=== PATIENT | female | born 1955 | race Caucasian/White ===

== ENCOUNTER 2019-10-08 07:14 | Outpatient (CLI) | payer MEDICARE, OTHER, SELFPAY ==
--- NOTE | ~2019-10-08 | MM_ITS ---
EXAMINATION: MM screening [facility] BI w raymundo HISTORY: Screening mammogram TECHNIQUE: Craniocaudal and mediolateral oblique 3-D tomosynthesis images were obtained and synthetic 2-D images were generated. CAD analysis was submitted and interpreted. COMPARISON: 08/30/2018, 08/09/2017, 07/27/2016 bilateral digital screening mammogram examinations BREAST PARENCHYMAL COMPOSITION: The breasts are heterogeneously dense, which may obscure small masses . FINDINGS: There is no evidence of suspicious mass, calcification, or architectural distortion to sugg est malignancy in either breast. There has been no suspicious interval change. IMPRESSION: 1. No mammographic evidence of malignancy. 2. Recommend routine screening mammography in one year. BI-RADS Category 1: Negative Reviewed, dictated and finalized at location A. OR SYSTEMS PROGRAMMER
== END 2019-10-08 07:15 | disposition home or self-care (01) ==
LOC: ANHIMG 07:24
PROVIDERS: PCP Internal Medicine; Visit Provider Internal Medicine
DX: Z12.31 Encounter for screening mammogram for malignant neoplasm of breast (principal)
CPT/HCPCS: 77063; 77067

== ENCOUNTER 2019-10-08 07:47 | Outpatient (CLI) | payer MEDICARE, OTHER, SELFPAY ==
[2019-10-08 13:30] LABS: Basophils Absolute Auto 0.1 K/mm3 (0.0-0.1); Basophils Percent Auto 0.8 % (0.2-1.2); Eosinophils Absolute Auto 0.2 K/mm3 (0-0.3); Eosinophils Percent Auto 1.9 % (0-4.4); Hemoglobin 14.5 g/dL (12.0-15.0); Immature Granulocyte Absolute 0.04 K/mm3 (0.00-0.031); Immature Granulocyte Percent A 0.5 % (0-0.5); Lymphocytes Absolute Auto 1.63 K/mm3 (0.9-3.2); Lymphocytes Percent Auto 19.5 % (18.3-44.2); Mean Corpuscular HGB Conc 32.2 g/dl (32-36); Mean Corpuscular Hemoglobin 30.5 pg (26-34); Mean Corpuscular Volume 94.7 fl (80-100); Mean Platelet Volume 10.8 fl (7.4-10.4); Monocytes Absolute Auto 0.7 K/mm3 (0.1-0.6); Monocytes Percent Auto 7.9 % (2.6-8.5); Neutrophils Absolute Auto 5.8 K/mm3 (1.3-6.7); Neutrophils Percent Auto 69.4 % (45.5-73.1); Platelet Count Result 284 k/mm3 (150-375); Red Blood Count 4.75 M/mm3 (4.2-5.4); Red Cell Distribution Width 13.7 % (11.5-14.5); White Blood Count 8.4 K/mm3 (4.5-10.0)
[2019-10-08 13:37] LABS: Alanine Aminotransferase 20 U/L (4-35); Albumin Level 4.5 g/dL (3.5-5.1); Alkaline Phosphatase 64 U/L (38-126); Aspartate Amino Transferase 26 U/L (14-36); Bilirubin,Total 0.6 mg/dL (0.2-1.3); Blood Urea Nitrogen 19 mg/dL (7-17); Calcium 9.3 mg/dL (8.4-10.2); Carbon Dioxide 23 mmol/L (22-30); Chloride 108 mmol/L (98-107); Cholesterol 212 mg/dL (0-200); Estimated Glomerular Filt Rate > 60; Glucose 93 mg/dL (65-105); HDL Direct 88 mg/dL; Potassium 4.3 mmol/L (3.4-5.0); Sodium 138 mmol/L (137-145); Triglycerides 126 mg/dL (<150)
[2019-10-08 13:48] LABS: LDL Cholesterol Direct 117 mg/dL
[2019-10-08 14:07] LABS: Thyroid Stimulating Hormone < 0.015 uIU/mL (0.465-4.680)
== END 2019-10-08 07:48 | disposition home or self-care (01) ==
LOC: ANHWCLAB 07:52
PROVIDERS: PCP Internal Medicine; Visit Provider Internal Medicine
DX: E78.49 Other hyperlipidemia (principal); R53.83 Other fatigue
CPT/HCPCS: 36415; 77063; 77067; 80053; 80061; 84443; 85025

== ENCOUNTER 2020-05-23 06:54 | Outpatient (NON) | payer MEDICARE, OTHER, SELFPAY ==
[2020-05-23 18:25] LABS: SARS-CoV-2 RNA PCR Negative
== END 2020-05-23 06:55 ==
PROVIDERS: PCP Internal Medicine; Visit Provider Internal Medicine
DX: R68.89 Other general symptoms and signs (principal); Z20.828 Contact with and (suspected) exposure to other viral communicable diseases
CPT/HCPCS: 87635; C9803; U0003

== ENCOUNTER 2020-07-16 14:02 | Emergency (ER) | payer MEDICARE, OTHER, SELFPAY ==
[2020-07-16 14:15] VITALS: BP 142/77; PULSE 82; RESP 16; TEMP 36.8; O2SAT 100
--- NOTE | 2020-07-16 14:48 | ED.FEMALEGU ---
HPI - Female Genitourinary General Chief complaint: Urogenital-Female Stated complaint: Possible UTI Source: patient and RN notes reviewed Mode of arrival: ambulatory History of Present Illness HPI Narrative: This is a 65-year-old white female that presented to the urgent care today with complaints of a persistent urge to urinate in suprapubic pressure. According to patient she has a history of urinary tract infections. She noted that she has historically developed UTIs after having sexual intercourse. She also noted that her doctor had given her Macrobid to take post sexual intercourse to prevent urinary tract infections. Patient did note that she does not have hematuria, she denies any STDs, no vaginal tenderness, fever , dysuria ,costovertebral angle tenderness. Patient urinalysis did return negative she will be treated for urinary tract infection off of symptoms and her urine will be sent in for culture Related Data Home Medications Medication Instructions Recorded Confirmed No Home Medications 07/16/20 07/16/20 Allergies Allergy/AdvReac Type Severity Reaction Status Date / Time No Known Allergies Allergy Unknown Verified 07/16/20 14:13 Review of Systems Review of Systems: All systems reviewed & are unremarkable except as noted in HPI and below (10 point system review) [facility] Family History Family History Other Family history of arthritis Family history of cardiovascular disease Family history of kidney stones Hypertension Social History Social History Smoking status: Current some day smoker Tobacco type: cigarettes Second hand tobacco smoke exposure: No Alcohol intake: current Gender identity (if verbalized by the patient): Female Exam Narrative: Exam Narrative: GENERAL: This is a well-nourished, well-developed patient, in no apparent distress. HEAD: normocephalic, atraumatic. EYES: PERRL. Sclera clear/white. Vision is grossly intact. EARS: External ears normal, auditory canals clear and without drainage, TMs normal without perforation. Hearing grossly intact. NOSE: External nose normal with no obvious nasal discharge, nares without redness, no rhinorrhea. THROAT: Mucous membranes moist, posterior pharynx clear. NECK: Neck supple, non-tender without lymphadenopathy, masses or thyromegaly. CARDIOVASCULAR: Regular rate and rhythm without murmurs, gallops, or rubs. RESPIRATORY: Clear to auscultation. Breath sounds equal bilaterally. No wheezes, rales, or rhonchi. GASTROINTESTINAL: Abdomen soft, non-tender, nondistended. Bowel sounds are active. No hepato-splenomegaly, or palpable masses. No guarding. SKIN: warm, intact with no suspicious lesions or rash, good texture and turgor. NEURO: awake, alert, and oriented to person, place and time. There were no obvious focal neurologic abnormalities. Steady gait EXTREMITIES: Normal range of motion. No edema. No calf tenderness. Negative Homans sign bilaterally. BACK: Nontender without deformity or crepitance. No flank tenderness. Course Course Emergency Course: Patient will discharge home with Macrobids x10 days Vital Signs Vital signs: Vital Signs Temperature 98.2 F 07/16/20 14:15 Pulse Rate 82 07/16/20 14:15 Respiratory Rate 16 07/16/20 14:15 Blood Pressure 142/77 H 07/16/20 14:15 Pulse Oximetry 100 07/16/20 14:15 Temperature 98.2 F 07/16/20 14:15 Pulse Rate 82 07/16/20 14:15 Respiratory Rate 16 07/16/20 14:15 Blood Pressure 142/77 H 07/16/20 14:15 Pulse Oximetry 100 07/16/20 14:15 MDM - Female Genitourinary Differential Diagnosis Differential diagnosis: Likely urinary tract infection, bacterial vaginosis and vaginitis Lab Data Attestation: I reviewed the patient's lab results. Labs: Urine Glucose Negative Reference Range: Nega
== END 2020-07-16 14:50 | disposition home or self-care (01) ==
PROVIDERS: Emergency Provider Nurse Practitioner; PCP Internal Medicine
DX: N39.0 Urinary tract infection, site not specified (principal); F17.210 Nicotine dependence, cigarettes, uncomplicated
CPT/HCPCS: 81003; 87086; 99213; G0463

== ENCOUNTER 2020-08-02 12:42 | Emergency (ER) | payer MEDICARE, OTHER, SELFPAY ==
[2020-08-02 12:51] VITALS: BP 127/76; PULSE 70; RESP 16; TEMP 36.4; O2SAT 100
[2020-08-02 12:52] VITALS: BP 127/76; PULSE 70; RESP 16; TEMP 36.4; O2SAT 100
--- NOTE | 2020-08-02 13:31 | ED.GENADULT ---
HPI - General Adult General Chief complaint: Urogenital-Female Stated complaint: lower back pain,dizzy,headache Time Seen by Provider: 08/02/20 13:25 Source: patient, RN notes reviewed and old records reviewed Mode of arrival: ambulatory Limitations: no limitations History of Present Illness HPI narrative: Patient presents today complaining of possible UTI. She was seen here at [facility] on 07/16/20 complaining of UTI symptoms. At that time, her UA was negative, but was treated with Macrobid. Her subsequent urine culture was negative. Patient states her symptoms never really resolved and she also continued to take Azo since that time. She is complaining of bilateral hip pain and low back pain, which she believes could be attributed to UTI. She is not experiencing dysuria, hematuria, frequency, urgency. MD complaint: UTI Related Data Home Medications Medication Instructions Recorded Confirmed No Home Medications 07/16/20 08/02/20 Allergies Allergy/AdvReac Type Severity Reaction Status Date / Time No Known Allergies Allergy Unknown Verified 08/02/20 12:52 Review of Systems Review of Systems: Narrative: CONSTITUTIONAL: Denies body aches, fever, chills, or sweats. EYES: Denies visual changes, redness, or discharge. ENT: Denies rhinorrhea, congestion, sore throat, or otalgia. CARDIOVASCULAR: Denies chest pain, palpitations, or edema. RESPIRATORY: Denies cough or dyspnea. GASTROINTESTINAL: Denies abdominal pain, nausea, vomiting, or diarrhea. GENITOURINARY: Denies dysuria or hematuria. SKIN: Denies rash, itching, or wounds. MUSCULOSKELETAL: Denies myalgia. + Bilateral hip pain, low back pain NEUROLOGIC: Denies headache, numbness, tingling, or weakness. PSYCH: Denies depression or anxiety. [facility] Family History Family History Other Family history of arthritis Family history of cardiovascular disease Family history of kidney stones Hypertension Social History Social History Smoking status: Current some day smoker Tobacco type: cigarettes Second hand tobacco smoke exposure: No Alcohol intake: current Gender identity (if verbalized by the patient): Female Comments At time of signature, I have reviewed and agree with nursing past medical, surgical, social and family history unless otherwise noted. Please see nursing chart for further information. There is no relevant family history pertinent to the presenting complaint Exam Narrative: Exam Narrative: GENERAL: Well-appearing, well-nourished, and in no acute distress. HEAD: Normocephalic, atraumatic. EYES: EOMI. No redness or drainage. Conjunctivae normal. ENT: Mucous membranes pink and moist. NECK: Normal AROM. Supple. No lymphadenopathy. CHEST: No respiratory distress. Clear to auscultation. HEART: Regular rate and rhythm. No murmur appreciated. Normal peripheral pulses. ABDOMEN: Soft, nontender, nondistended, normal active bowel sounds. -CVAT MUSCULOSKELETAL: No bony tenderness. EXTREMITIES: Normal range of motion. No edema. SKIN: Warm, dry, no rash. Capillary refill normal. Normal skin turgor. NEURO: No focal deficits. Alert and oriented x3. Gait steady. PSYCH: Normal affect. No signs of depression or anxiety. Course Vital Signs Vital signs: Vital Signs Temperature 97.6 F 08/02/20 12:51 Pulse Rate 70 08/02/20 12:51 Respiratory Rate 16 08/02/20 12:51 Blood Pressure 127/76 08/02/20 12:51 Pulse Oximetry 100 08/02/20 12:51 Temperature 97.6 F 08/02/20 12:52 Pulse Rate 70 08/02/20 12:52 Respiratory Rate 16 08/02/20 12:52 Blood Pressure 127/76 08/02/20 12:52 Pulse Oximetry 100 08/02/20 12:52 Reviewed. Pt has been instructed to follow up with her PCP regarding her elevated blood pressure today. Medical Decision Making Differential Diagnosis Differential Diagnosis: UTI, low back pain
== END 2020-08-02 13:36 | disposition home or self-care (01) ==
PROVIDERS: Emergency Provider Nurse Practitioner; PCP Internal Medicine
DX: M54.5 Low back pain (principal); M25.552 Pain in left hip; M25.551 Pain in right hip; F17.210 Nicotine dependence, cigarettes, uncomplicated
CPT/HCPCS: 81003; 99212; G0463

== ENCOUNTER 2020-10-03 09:09 | Outpatient (CLI) | payer MEDICARE, OTHER, SELFPAY ==
[2020-10-03 09:35] LABS: Basophils Absolute Auto 0.1 K/mm3 (0.0-0.1); Basophils Percent Auto 0.7 % (0.2-1.2); Eosinophils Absolute Auto 0.1 K/mm3 (0-0.3); Hemoglobin 14.7 g/dL (12.0-15.0); Immature Granulocyte Absolute 0.02 K/mm3 (0.00-0.031); Immature Granulocyte Percent A 0.3 % (0-0.5); Lymphocytes Absolute Auto 1.38 K/mm3 (0.9-3.2); Lymphocytes Percent Auto 19.4 % (18.3-44.2); Mean Corpuscular HGB Conc 32.7 g/dl (32-36); Mean Corpuscular Hemoglobin 30.6 pg (26-34); Mean Corpuscular Volume 93.8 fl (80-100); Mean Platelet Volume 9.6 fl (7.4-10.4); Monocytes Absolute Auto 0.6 K/mm3 (0.1-0.6); Monocytes Percent Auto 8.4 % (2.6-8.5); Neutrophils Percent Auto 70.2 % (45.5-73.1); Platelet Count Result 282 k/mm3 (150-375); Red Cell Distribution Width 12.9 % (11.5-14.5); White Blood Count 7.1 K/mm3 (4.5-10.0)
[2020-10-03 10:10] LABS: Alanine Aminotransferase 15 U/L (4-35); Albumin Level 4.4 g/dL (3.5-5.1); Alkaline Phosphatase 49 U/L (38-126); Anion Gap 6 mmol/L (8-16); Aspartate Amino Transferase 24 U/L (14-36); Bilirubin,Total 0.6 mg/dL (0.2-1.3); Blood Urea Nitrogen 16 mg/dL (7-17); Calcium 9.3 mg/dL (8.4-10.2); Carbon Dioxide 27 mmol/L (22-30); Chloride 107 mmol/L (98-107); Cholesterol 236 mg/dL (0-200); Estimated Glomerular Filt Rate > 60; Glucose 101 mg/dL (65-105); HDL Direct 93 mg/dL; Potassium 4.2 mmol/L (3.4-5.0); Sodium 140 mmol/L (137-145); Triglycerides 98 mg/dL (<150)
[2020-10-03 10:36] LABS: LDL Cholesterol Direct 117 mg/dL
[2020-10-03 10:40] LABS: Thyroid Stimulating Hormone 0.801 uIU/mL (0.465-4.680)
[2020-10-03 11:16] LABS: Free T4 Free Thyroxine 0.74 ng/mL (0.78-2.19)
== END 2020-10-03 09:10 | disposition home or self-care (01) ==
PROVIDERS: PCP Internal Medicine; Referring Provider Obstetrics & Gynecology Gynecology; Visit Provider Internal Medicine
DX: R53.83 Other fatigue (principal); E78.00 Pure hypercholesterolemia, unspecified; E03.9 Hypothyroidism, unspecified
CPT/HCPCS: 36415; 80053; 80061; 84439; 84443; 85025

== ENCOUNTER → 2020-10-28 03:01 | Outpatient (CLI) | payer MEDICARE, OTHER, SELFPAY ==
[2020-10-28 18:08] LABS: SARS-CoV-2 RNA PCR Negative
== END ==
PROVIDERS: PCP Internal Medicine; Visit Provider Internal Medicine Gastroenterology
DX: Z01.812 Encounter for preprocedural laboratory examination (principal); Z20.822 Contact with and (suspected) exposure to COVID-19
CPT/HCPCS: C9803; U0003; U0005

== ENCOUNTER 2020-10-31 01:20 | Day surgery (SDC) | payer MEDICARE, OTHER, SELFPAY ==
[2020-10-23 14:30] VITALS: BMI 22.1
[2020-10-31 10:19] VITALS: BP 128/77; PULSE 85; RESP 20; TEMP 36.4; O2SAT 100; BMI 22.6
--- NOTE | 2020-10-31 10:33 | WPDANESEPPF ---
Anes - Initial Pre Proc Eval Procedure: Operation Date: 10/31/20 11:30 Proposed Procedures p Screening Colonoscopy - Jaya Oneill MD Date/Time: 10/31/20 10:33 Surgeon: Jaya Oneill MD Pre Op Diagnosis: hx of colon polyps Patient Data Age: 65 Gender: F Height: 5 ft 4 in Weight: 59.7 kg Last Vital Signs Temp 97.6 F 10/31/20 10:19 Pulse 85 10/31/20 10:19 Resp 20 10/31/20 10:19 BP 128/77 10/31/20 10:19 Pulse Ox 100 10/31/20 10:19 Allergies Allergy/AdvReac Type Severity Reaction Status Date / Time No Known Allergies Allergy Unknown Verified 10/31/20 10:18 Home Medications Medication Instructions Recorded Confirmed Type cholecalciferol (vitamin D3) 125 125 mcg PO DAILY 10/01/20 10/23/20 History mcg (5,000 unit) capsule lisinopril 10 mg tablet 10 mg PO DAILY #90 tablet 10/01/20 10/23/20 Rx melatonin 3 mg tablet 1.5 mg PO DAILY tablet 10/01/20 10/23/20 History thyroid 120 mg tablet 105 mg PO DAILY tablet 10/01/20 10/23/20 History estradiol 1 mg PO DAILY 10/23/20 10/23/20 History progesterone micronized 100 mg PO DAILY 10/23/20 10/23/20 History testosterone 1 packet TRANSDERMAL DAILY 10/23/20 10/23/20 History Patient hx anesthesia problems: none Family hx anesthesia problems: none PMFSH Past Medical History Medical History (Updated 10/31/20 @ 10:33 by Desean Ramírez MD) Hypertension Hypothyroid Pure hypercholesterolemia Family History Family History Other Family history of arthritis Family history of cardiovascular disease Family history of kidney stones Hypertension Social History Social History Years smoked: 40 Smoking status: Former smoker Tobacco type: cigarettes Second hand tobacco smoke exposure: No Smoking end date: 08/08/20 Alcohol intake: current Drinks per week: 5 Living arrangements: alone Gender identity (if verbalized by the patient): Female Spiritual care concerns: No Anes - Eval Final PreProcedure Day of Procedure 10/31/20 10:33 Patient weight: normal Heart: regular rate and rhythm Lungs: clear to auscultation Airway: Mallampati scale class II Neurological: alert and oriented Last oral intake: >/= 8 hours ASA classification: II Emergent: no Anesthetic plan: proceed Anesthesia type and monitoring: general GIVS and standard monitoring Informed Consent: The patient's anesthetic plan and its attendant risks and benefits were discussed with the patient/family/POA. Questions were solicited and answers provided to the satisfaction of the patient/family/POA.
[2020-10-31] MEDS: LACTATED RINGERS 1,000 ML 150 ML IV CONT (10:34)
--- NOTE | 2020-10-31 10:46 | PM.HPGS ---
History of Present Illness History of Present Illness Consent: Risks, benefits, and alternatives have been discussed and questions answered. Patient agrees to proceed with procedure. Chief complaint: hx of colon polyps Narrative: Lucila Burns is a 65 year old female Here today for colon cancer screening. She had a polyp removed 7 years ago Review of Systems Review of Systems: All systems reviewed & are unremarkable except as noted in HPI and below PMFSH Past Medical History Medical History Hypertension Hypothyroid Pure hypercholesterolemia Family History Family History Other Family history of arthritis Family history of cardiovascular disease Family history of kidney stones Hypertension Social History Social History Years smoked: 40 Smoking status: Former smoker Tobacco type: cigarettes Second hand tobacco smoke exposure: No Smoking end date: 08/08/20 Alcohol intake: current Drinks per week: 5 Living arrangements: alone Gender identity (if verbalized by the patient): Female Spiritual care concerns: No Meds Home Medications and Allergies Home Medications Medication Instructions Recorded Confirmed Type cholecalciferol (vitamin D3) 125 125 mcg PO DAILY 10/01/20 10/23/20 History mcg (5,000 unit) capsule lisinopril 10 mg tablet 10 mg PO DAILY #90 tablet 10/01/20 10/23/20 Rx melatonin 3 mg tablet 1.5 mg PO DAILY tablet 10/01/20 10/23/20 History thyroid 120 mg tablet 105 mg PO DAILY tablet 10/01/20 10/23/20 History estradiol 1 mg PO DAILY 10/23/20 10/23/20 History progesterone micronized 100 mg PO DAILY 10/23/20 10/23/20 History testosterone 1 packet TRANSDERMAL DAILY 10/23/20 10/23/20 History Allergies Allergy/AdvReac Type Severity Reaction Status Date / Time No Known Allergies Allergy Unknown Verified 10/31/20 10:18 Vital Signs Vital Signs - 24 hr 10/31/20 10:19 Temperature 36.4 C Pulse Rate 85 Respiratory Rate 20 Blood Pressure 128/77 Pulse Oximetry 100 Exam Resp: Auscultation: clear to auscultation bilaterally Cardio: Rate: regular rate Rhythm: regular rhythm GI: GI Palp: Yes Soft to palpation and No Tenderness to palpation present (GI) Assessment and Plan Assessment and plan (1) Colon cancer screening: Code(s): Z12.11 - Encounter for screening for malignant neoplasm of colon Status: Acute Assessment and Plan: Colonoscopy with possible biopsy or polypectomy or cautery or injection of substances.
[2020-10-31 11:38] VITALS: BP 108/61; PULSE 63; RESP 15; O2SAT 100
[2020-10-31 11:48] VITALS: BP 119/71; PULSE 65; RESP 18; O2SAT 100
[2020-10-31 11:58] VITALS: BP 117/64; PULSE 62; RESP 14; O2SAT 96
== END 2020-10-31 12:20 | disposition home or self-care (01) ==
PROVIDERS: PCP Internal Medicine; Visit Provider Internal Medicine Gastroenterology
PROC: 0DJD8ZZ Inspection of Lower Intestinal Tract, Via Natural or Artificial Opening Endoscopic (ICD-10-PCS; CPT 45378; principal; 2020-10-31 11:30)
DX: Z12.11 Encounter for screening for malignant neoplasm of colon (principal); K63.5 Polyp of colon; K57.30 Diverticulosis of large intestine without perforation or abscess without bleeding; I10 Essential (primary) hypertension; E03.9 Hypothyroidism, unspecified; E78.00 Pure hypercholesterolemia, unspecified; Z87.891 Personal history of nicotine dependence
CPT/HCPCS: 45385; 88305; J2001; J2704; J7120

== ENCOUNTER 2020-11-06 10:16 | Outpatient (CLI) | payer MEDICARE, OTHER, SELFPAY ==
--- NOTE | ~2020-11-06 | DEXA_ITS ---
Bone Density Report Name: Lucila Burns Age: 65 Sex: Female Ethnicity: White Date of : 1955 Indication: osteopenia; height loss; Referring Provider: Anuj Causey Study: Bone densitometry was performed. Exam Date: November 06, 2020 Accession number: [id number] Bone Density: Region BMD T-score Z-score Classification AP Spine (L1-L4) 0.941 -1.0 1.0 Normal Femoral Neck (Left) 0.781 -0.6 1.0 Normal Total Hip (Left) 0.889 -0.4 0.9 Normal Total Hip Bilateral Avg 0.890 -0.4 0.9 Normal Femoral Neck (Right) 0.713 -1.2 0.4 Osteopenia Total Hip (Right) 0.891 -0.4 0.9 Normal World Health Organization criteria for BMD impression classify patients as: Normal (T-score at or above -1.0), Osteopenia (T-score between -1.0 and -2.5), or Osteoporosis (T-score at or below -2.5). 10-year Fracture Risk(1): Major Osteoporotic Fracture 8.4% Hip Fracture 0.8% Reported Risk Factors: [place] (), Neck BMD=0.713, BMI=23.0 (1) FRAX(R) Version 3.08. Fracture probability calculated for an untreated patient. Fracture probability may be lower if the patient has received treatment. Previous Exams: Region Exam Age BMD T-score BMD Change BMD Change Date g/cm2 vs Baseline vs Previous AP Spine(L1-L4) 11/06/2020 65 0.941 -1.0 -0.062(-6.2%)# 0.050(5.7%)# 09/27/2018 63 0.890 -1.4 -0.112(-11.2%) -0.030(-3.3%)* 07/27/2016 61 0.920 -1.2 -0.082(-8.2%)# 0.006(0.7%)# 01/03/2013 57 0.914 -1.2 -0.089(-8.8%)# -0.041(-4.2%)# 09/12/2009 54 0.955 -0.8 -0.048(-4.8%)* -0.048(-4.8%)* 12/29/2006 51 1.003 -0.4 Total Hip(Left) 11/06/2020 65 0.889 -0.4 0.012(1.4%)# 0.051(6.1%)# 09/27/2018 63 0.837 -0.9 -0.039(-4.5%)# -0.019(-2.2%) 07/27/2016 61 0.856 -0.7 -0.020(-2.3%)# -0.049(-5.4%)# 01/03/2013 57 0.905 -0.3 0.029(3.3%)# 0.014(1.6%)# 09/12/2009 54 0.891 -0.4 0.015(1.7%) 0.015(1.7%) 12/29/2006 51 0.876 -0.5 Total Hip(Right) 11/06/2020 65 0.891 -0.4 -0.014(-1.5%)# 0.028(3.2%)# 09/27/2018 63 0.863 -0.6 -0.042(-4.6%)# 0.002(0.3%) 07/27/2016 61 0.861 -0.7 -0.044(-4.9%)# -0.028(-3.1%)# 01/03/2013 57 0.889 -0.4 -0.016(-1.8%)# -0.059(-6.2%)# 09/12/2009 54 0.948 0.0 0.042(4.7%)* 0.042(4.7%)* 12/29/2006 51 0.905 -0.3 *Denotes significance at 95% confidence level, LSC for AP Spine = 0.022 g/cm2, LSC for Total Hip = 0.027 g/cm2 Clinical Information Provided by Patient: Has used the following medicatio
--- NOTE | ~2020-11-06 | MM_ITS ---
EXAMINATION: MM screening [facility] BI w raymundo HISTORY: Screening mammogram TECHNIQUE: Craniocaudal and mediolateral oblique 3-D tomosynthesis images were obtained and synthetic 2-D images were generated. CAD analysis was submitted and interpreted. COMPARISON: 10/08/2019, 08/30/2018, 08/09/2017 BREAST PARENCHYMAL COMPOSITION: The breasts are heterogeneously dense, which may obscure small masses . FINDINGS: There is no evidence of suspicious mass, calcification, or architectural distortion to sugg est malignancy in either breast. There has been no suspicious interval change. IMPRESSION: 1. No mammographic evidence of malignancy. 2. Recommend routine screening mammography in one year. BI-RADS Category 1: Negative Reviewed, dictated and finalized at location A.
== END 2020-11-06 10:17 | disposition home or self-care (01) ==
PROVIDERS: PCP Internal Medicine; Visit Provider Student in an Organized Health Care Education/Training Program
DX: Z12.31 Encounter for screening mammogram for malignant neoplasm of breast (principal); Z78.0 Asymptomatic menopausal state; M85.851 Other specified disorders of bone density and structure, right thigh
CPT/HCPCS: 77063; 77067; 77080

== ENCOUNTER → 2022-02-11 12:16 | Outpatient (CLI) | payer MEDICARE, OTHER, SELFPAY ==
--- NOTE | ~2022-02-11 | MR_ITS ---
EXAMINATION: MR elbow RT wo con DATE: 02/11/2022 12:52 INDICATION: Lateral epicondylitis at the right elbow TECHNIQUE: Magnetic resonance imaging (MRI) of the right elbow was performed without intravenous cont rast. Sequences included coronal, axial, and sagittal PD-weighted FS FSE and coronal, axial, and sagi ttal PD-weighted FSE. COMPARISON: None FINDINGS: Osseous/other: Normal alignment. Normal marrow signal with no marrow edema, fracture, osteochondral lesion or abnor mal marrow replacing process. Mild osteoarthritis with mild nonuniform joint space narrowing on the p roximal articular surface of the radial head. Tendons: Triceps and brachialis tendons are normal. Mild tendinopathy without discrete tear at the distal nai ps brachii tendon. Common flexor tendon wad is normal. Moderate tendinopathy and partial-thickness te ar at the lateral epicondylar origin of the common extensor tendon wad. The tear appears to involve a pproximately one half of the cross-sectional area of the tendon wad. Ligaments: The medial and lateral collateral ligament complexes are normal. Cubital tunnel: Cubital tunnel is unremarkable with normal signal and caliber of the ulnar nerve. Fluid: Physiologic amount of fluid the elbow joint. IMPRESSION: 1. Moderate tendinopathy and partial-thickness tear at the lateral epicondylar origin of the common e xtensor tendon wad. 2. Mild tendinopathy without discrete tear at the distal biceps brachii tendon. 3. 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 Reviewed, dictated and finalized at location A. IMPRESSION: 1. Moderate tendinopathy and partial-thickness tear at the lateral epicondylar origin of the common extensor tendon wad. 2. Mild tendinopathy without discrete tear at the distal biceps brachii tendon. 3. 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
== END ==
PROVIDERS: PCP Internal Medicine; Visit Provider Orthopaedic Surgery
DX: M77.11 Lateral epicondylitis, right elbow (principal)
CPT/HCPCS: 73221

== ENCOUNTER 2022-02-19 08:26 | Outpatient (CLI) | payer MEDICARE, OTHER, SELFPAY ==
--- NOTE | 2022-02-19 08:43 | ECG_ITS ---
Measurements Intervals [place] Rate: 65 P: 73 [place]: 141 QRS: -17 QRSD: 107 T: 57 QT: 401 QTc: 419 Interpretive Statements SINUS RHYTHM LEFT ATRIAL ENLARGEMENT INCOMPLETE RIGHT BUNDLE BRANCH BLOCK BORDERLINE ECG Electronically Signed On 02-19-2022 18:29:17 CDT by Calin Lozano D.O.
== END 2022-02-19 08:27 | disposition home or self-care (01) ==
LOC: ANHSURGERY 08:34
PROVIDERS: PCP Internal Medicine; Visit Provider Orthopaedic Surgery
DX: I10 Essential (primary) hypertension (principal); I45.4 Nonspecific intraventricular block
CPT/HCPCS: 93005

== ENCOUNTER 2022-02-23 00:19 | Day surgery (SDC) | payer MEDICARE, OTHER, SELFPAY ==
[2022-02-17 12:46] VITALS: BMI 22.3
--- NOTE | 2022-02-17 12:52 | PC.NURSE ---
Report to the Outpatient Waiting Room, entrance under the green pavilion located off [facility], at time 0615 on date 02-23-2022. OR Time: 0815. - You and your visitor will be asked a series of questions to screen for COVID 19 for your protection. - Only one visitor is allowed at this time. - The patient visitor is requested to leave or wait in car when not with patient. - A mask is required within the hospital. Patients may have clear liquids (water, carbonated beverages, clear teas, apple juice) until 3 hours prior to surgery with a maximum of 20 ounces. - No food from midnight until time of surgery Take the following medications with a SIP of water the morning of surgery: ____Thyroid Medications to discontinue per physician Date to take last dose Please no make-up, nail estonian, hairspray, perfume, deodorant, or body powder the day of surgery. No jewelry (including any body piercings) or valuables the day of surgery, leave them at home. Please take a shower or bath the night before, or the morning of, surgery with an antibacterial soap. Wear comfortable, loose fitting clothing. - Jewelry must be removed prior to entering the operating room. Rings and piercings that are not removed may be cut off. - The hospital will not accept responsibility for valuables. - Please leave all valuables, including medications, at home the day of surgery. If you are going home after surgery, a licensed locomotive driver must drive you home. - NO public transportation without another adult. - We recommend that an adult stay with you for 24 hours following discharge. - We also recommend that you do not drive, make important decision, drink alcoholic beverages, or take any drugs that were not prescribed by your health care provider for at least 24 hours after your discharge time. Follow any additional instructions given to you from your surgeon. If you or anyone in your household have experienced Covid symptoms in the past week, please notify your surgeon or the nurse liaison at the phone number below for possible testing. Telephone instructions given to __Patient and asked if any additional questions and then verbalized understanding. Patient advised to call surgeon office or pre surgery nurse liaison [phone] if any additional questions.
--- NOTE | 2022-02-22 14:49 | P.PNAN_ITS ---
Anes - Initial Pre Proc Eval Procedure: Operation Date: 02/23/22 08:30 Proposed Procedures p Right Lateral Epicondylar Debridement - Mario Bearden MD Date/Time: 02/22/22 14:49 Surgeon: Mario Bearden MD Pre Op Diagnosis: Right lateral epicondylitis Patient Data Age: 66 Gender: F Height: 1.63 m Weight: 59 kg Allergies Allergy/AdvReac Type Severity Reaction Status Date / Time No Known Allergies Allergy Unknown Verified 02/23/22 06:40 Home Medications Medication Instructions Recorded Confirmed Type cholecalciferol (vitamin D3) 125 125 mcg PO DAILY 10/01/20 02/23/22 History mcg (5,000 unit) capsule melatonin 3 mg tablet 1.5 mg PO DAILY 10/01/20 02/23/22 History thyroid 120 mg tablet 105 mg PO DAILY 10/01/20 02/23/22 History estradiol 1 mg tablet 1 mg PO DAILY 10/23/20 02/23/22 History progesterone micronized 100 mg 100 mg PO HS 10/23/20 02/23/22 History capsule testosterone 1 % (25 mg/2.5 gram) 1 packet transdermal DAILY 10/23/20 02/17/22 History transdermal gel packet lisinopril 10 mg tablet 10 mg PO DAILY #90 tabs 10/05/21 02/23/22 Rx progesterone micronized 200 mg 200 mg PO HS 02/17/22 02/23/22 History capsule Patient hx anesthesia problems: none Family hx anesthesia problems: none Results Review: All pre-operative results and documents have been reviewed as part of the pre- operative evaluation. [facility] Past Medical History Medical History (Updated 02/16/22 @ 09:45 by Mario Bearden MD) Hypertension Hypothyroid Pure hypercholesterolemia Right lateral epicondylitis Surgical History Surgical History History of hysterectomy Family History Family History Sibling Brain cancer Hypertension Heart disease Other Family history of arthritis Family history of cardiovascular disease Family history of kidney stones Social History Social History Years smoked: 20 Smoking status: Former smoker Tobacco type: cigarettes Second hand tobacco smoke exposure: No Smoking end date: 02/17/15 Alcohol intake: current Drinks per week: 3 Living arrangements: alone Gender identity (if verbalized by the patient): Female Spiritual care concerns: No Anes - Eval Final PreProcedure Day of Procedure 02/22/22 14:49 Patient weight: normal Heart: regular rate and rhythm Lungs: clear to auscultation Airway: Mallampati scale class II Neurological: alert and oriented Last oral intake: >/= 8 hours ASA classification: II Emergent: no Anesthetic plan: proceed Anesthesia type and monitoring: general LMA and standard monitoring Results Review: All pre-operative results and documents have been reviewed as part of the pre-op erative evaluation. Informed Consent: The patient's anesthetic plan and its attendant risks and benefits were discussed with the patient/family/POA. Questions were solicited and answers provided to the satisfaction of the patient/family/POA.
[2022-02-23] VITALS (7 sets, daily range): BP systolic 109–140; BP diastolic 56–90; PULSE 59–75; RESP 10–17; TEMP 36.4–36.6; O2SAT 98–100
[2022-02-23] MEDS: ACETAMINOPHEN 500 MG TABLET 1000 MG PO (07:29)
[2022-02-23] MEDS: LACTATED RINGERS 1,000 ML 30 ML IV CONT (07:37)
[2022-02-23] MEDS: KETOROLAC 15 MG/ML VIAL (*BKC) IV PUSH (07:40)
--- NOTE | 2022-02-23 08:02 | WPDHPUPDATE1 ---
History and Physical Update Update Date/Time: 02/23/22 08:02 History and Physical has been reviewed, including an updated exam of the patient. There are NO changes in the patient's condition. Risks, benefits, and alternatives have been discussed and questions answered. Patient agrees to proceed with procedure.
[2022-02-23] MEDS: ceFAZolin 2 GM/D5W 50 ML 2 GM/50 ML BAG IVPB (08:16)
[2022-02-23] MEDS: BUPIVACAINE/EPINEPHRINE 0.25% 10 ML VIAL 5 ML INFILTRATE (08:46)
--- NOTE | 2022-02-23 09:16 | W.PM.PROC2 ---
Procedure Note - Detailed Date of Procedure 02/23/22 Pre-op Diagnosis Right lateral epicondylitis Post-op Diagnosis Same Procedure Performed Right lateral epicondylar debridement Surgeon Mario Bearden MD [employer] Coordination Specialist Jessi Yeh Anesthesia General and Local Description of Procedure The patient was identified and proper site identified. She was taken to the operating room and transferred to the OR table placing her supine taking care to pad her torso and extremities. After general anesthetic induction and intubation, a nonsterile tourniquet was placed high in the right arm. Right upper extremity was prepped and draped in usual sterile fashion. The subcutaneous tissue over the suture was infiltrated with several cc of 0.25% plain Marcaine. The extremity was exsanguinated and tourniquet inflated to 200 millimeter mercury remaining up for 20 minutes. Longitudinal incision was made over the common extensor origin at the lateral epicondyle. Subcutaneous tissue was bluntly dissected protecting neurovascular structures. Forearm fascia was freed up over the tendinous origin. The tendon was released off the lateral epicondyle and divided longitudinally in line with the fibers to allow for debridement of the degenerative tissue. Small prominent portion of the lateral epicondyle was removed with a rongeur as well. The wound was irrigated with sterile saline. Tendon edges reapproximated with 4-0 Monocryl. Skin edges reapproximated with three 0 V lock and then tissue adhesive for the skin. Sterile dressings applied. Tourniquet was released. She tolerated the procedure well. She was awakened, extubated taken recovery area in stable condition. There were no known intraoperative complications. Estimated blood loss was negligible. She received perioperative antibiotics. Estimated Blood Loss 3 Tourniquet Time 20 Drains No Packing No Pathology None sent Complications No immediate complications Condition Stable Disposition PACU
== END 2022-02-23 10:27 | disposition home or self-care (01) ==
PROVIDERS: PCP Internal Medicine; Visit Provider Orthopaedic Surgery
PROC: (CPT 24110; principal; 2022-02-23 08:30)
DX: M77.11 Lateral epicondylitis, right elbow (principal); I10 Essential (primary) hypertension; E03.9 Hypothyroidism, unspecified; E78.00 Pure hypercholesterolemia, unspecified; Z87.891 Personal history of nicotine dependence
CPT/HCPCS: 24358; A9270; J0690; J1100; J1885; J2250; J2405; J2704; J3010; J7120

== ENCOUNTER 2022-02-25 10:30 | Outpatient (CLI) | payer MEDICARE, OTHER, SELFPAY ==
--- NOTE | ~2022-02-25 | MM_ITS ---
EXAMINATION: MM screening jen BI w raymundo HISTORY: Screening TECHNIQUE: Craniocaudal and mediolateral oblique 3-D tomosynthesis images were obtained and synthetic 2-D images were generated. CAD analysis was submitted and interpreted. COMPARISON: Comparison to multiple prior studies sequentially, with oldest reviewed study dated 09/2014. BREAST PARENCHYMAL COMPOSITION: The breasts are extremely dense, which lowers the sensitivity of mamm ography. FINDINGS: There is no evidence of suspicious mass, calcification, or architectural distortion to sugg est malignancy in either breast. There has been no suspicious interval change. IMPRESSION: 1. No mammographic evidence of malignancy. 2. Recommend routine screening mammography in one year. BI-RADS Category 1: Negative Reviewed, dictated and finalized at location L.
== END 2022-02-25 10:31 | disposition home or self-care (01) ==
PROVIDERS: PCP Internal Medicine; Visit Provider Obstetrics & Gynecology
DX: Z12.31 Encounter for screening mammogram for malignant neoplasm of breast (principal)
CPT/HCPCS: 77063; 77067

== ENCOUNTER 2022-05-24 19:15 | Emergency (ER) | payer MEDICARE, OTHER, SELFPAY ==
[2022-05-24 19:25] VITALS: BP 152/77; PULSE 75; RESP 18; TEMP 36.9; O2SAT 98
--- NOTE | 2022-05-24 19:27 | ED.URI ---
HPI - URI/Sore Throat General Chief Complaint: Upper Respiratory Infection Stated Complaint: Coughing,Sneezing,Headache Time Seen by Provider: 05/24/22 19:27 Source: patient, RN notes reviewed and old records reviewed Mode of arrival: ambulatory Limitations: no limitations History of Present Illness HPI Narrative: 66-year-old female presents to the [facility] with complaints of cough, sneezing and headache for 7-10 days. Reports having her flu shot on May 19 and states she did not feel good that day. MD elicited complaint: cough Related Data Home Medications Medication Instructions Recorded Confirmed cholecalciferol (vitamin D3) 125 125 mcg PO DAILY 10/01/20 05/24/22 mcg (5,000 unit) capsule melatonin 3 mg tablet 1.5 mg PO DAILY 10/01/20 05/24/22 thyroid 120 mg tablet 105 mg PO DAILY 10/01/20 05/24/22 estradiol 1 mg tablet 1 mg PO DAILY 10/23/20 05/24/22 progesterone micronized 100 mg 100 mg PO HS 10/23/20 05/24/22 capsule testosterone 1 % (25 mg/2.5 gram) 1 packet transdermal DAILY 10/23/20 05/24/22 transdermal gel packet progesterone micronized 200 mg 200 mg PO HS 02/17/22 05/24/22 capsule Allergies Allergy/AdvReac Type Severity Reaction Status Date / Time No Known Allergies Allergy Unknown Verified 04/14/22 09:23 Review of Systems Review of Systems: All systems reviewed & are unremarkable except as noted in HPI and below Constitutional: Constitutional: Reports no additional constitutional complaints, Denies chills and Denies fever(s) Eyes: Eyes: Reports no additional eye complaints ENT: Reports system reviewed and no additional complaints, except as documented Cardiovascular: Cardiovascular: Reports no additional cardiovascular complaints Respiratory: Respiratory: Reports as per HPI, Reports chest congestion, Reports cough, Denies dyspnea and Denies wheezing Gastrointestinal: Gastrointestinal: Reports no additional gastrointestinal complaints Musculoskeletal: Musculoskeletal: Reports no additional musculoskeletal complaints Integumentary/Breasts: Skin/Breast: Reports system reviewed and no additional complaints, except as docu Neurologic: Reports system reviewed and no additional complaints, except as documented Psychiatric: Psychiatric: Reports no additional psychiatric complaints Allergic/Immunologic: Allergic/Immunologic: Reports no additional allergic/immunologic complaints PMFSH Past Medical History Medical History Hypertension Hypothyroid Pure hypercholesterolemia Surgical History Surgical History History of hysterectomy Right lateral epicondylitis Debridement February 23, 2022 Family History Family History Sibling Brain cancer Hypertension Heart disease Other Family history of arthritis Family history of cardiovascular disease Family history of kidney stones Social History Social History Years smoked: 20 Smoking status: Former smoker Tobacco type: cigarettes Second hand tobacco smoke exposure: No Smoking end date: 02/17/15 Alcohol intake: current Drinks per week: 3 Gender identity (if verbalized by the patient): Female Spiritual care concerns: No Comments At the time of my signature, I reviewed and agree with the nursing past medical, surgical, social, and family history. There is no relevant family history pertinent to the patient complaint. Exam Const: General: healthy appearing, no acute distress, alert and well nourished Nutritional Appearance: well nourished Orientation/consciousness: patient oriented x3 Limitations: no limitations HENMT: Head: normal to inspection Ears: external ears normal, TM's normal bilaterally and EAC's normal Face/Nose/Sinus: Normal external nose present and Normal nares present Throat: pos
== END 2022-05-24 19:40 | disposition home or self-care (01) ==
PROVIDERS: Emergency Provider Nurse Practitioner; PCP Internal Medicine
DX: J40 Bronchitis, not specified as acute or chronic (principal); Z87.891 Personal history of nicotine dependence; I10 Essential (primary) hypertension; E03.9 Hypothyroidism, unspecified; E78.00 Pure hypercholesterolemia, unspecified
CPT/HCPCS: 99213; G0463

== ENCOUNTER 2022-10-25 18:44 | Emergency (ER) | payer MEDICARE, OTHER, SELFPAY ==
[2022-10-25 18:50] VITALS: BP 164/67; PULSE 74; RESP 16; TEMP 37.1; O2SAT 99
--- NOTE | 2022-10-25 19:11 | ED.URI ---
HPI - URI/Sore Throat General Chief Complaint: Upper Respiratory Infection Stated Complaint: Sinus Source: patient Mode of arrival: ambulatory Limitations: no limitations History of Present Illness HPI Narrative: Patient is a 67-year-old female that presents with congestion, cough, sore throat for 2 weeks. States she feels congestion in her chest but cannot cough it up. Denies any fever, chills, ear pain. Took at home COVID testing that was negative today Related Data Home Medications Medication Instructions Recorded Confirmed cholecalciferol (vitamin D3) 125 125 mcg PO DAILY 10/01/20 10/18/22 mcg (5,000 unit) capsule melatonin 3 mg tablet 1.5 mg PO DAILY 10/01/20 10/18/22 thyroid 120 mg tablet 105 mg PO DAILY 10/01/20 10/18/22 estradiol 1 mg tablet 1 mg PO DAILY 10/23/20 10/18/22 testosterone 1 % (25 mg/2.5 gram) 1 packet transdermal DAILY 10/23/20 10/18/22 transdermal gel packet progesterone micronized 200 mg 200 mg PO HS 02/17/22 10/18/22 capsule Allergies Allergy/AdvReac Type Severity Reaction Status Date / Time No Known Allergies Allergy Unknown Verified 10/25/22 18:48 Review of Systems Review of Systems: All systems reviewed & are unremarkable except as noted in HPI and below Constitutional: Constitutional: Denies body ache(s), Denies fever(s), Denies headache(s), Denies malaise and Denies weakness Eyes: Eyes: Denies loss of vision ENT: Denies otalgia, Denies headache(s), Reports nasal congestion, Denies sinus pain and Reports sore throat Cardiovascular: Cardiovascular: Denies chest pain, Denies irregular heart rhythm and Denies dyspnea Respiratory: Respiratory: Reports cough and Denies dyspnea Gastrointestinal: Gastrointestinal: Denies abdominal pain, Denies melena, Denies hematochezia, Denies diarrhea, Denies nausea and Denies vomiting Musculoskeletal: Musculoskeletal: Denies back pain, Denies myalgias and Denies arthralgias Integumentary/Breasts: Skin/Breast: Denies pruritus and Denies rash Neurologic: Denies headache(s), Denies loss of vision and Denies weakness Psychiatric: Psychiatric: Reports no additional psychiatric complaints PMFSH Past Medical History Medical History (Updated 10/25/22 @ 19:16 by Albertina Starr APRN) Hypertension Hypothyroid Pure hypercholesterolemia Surgical History Surgical History History of hysterectomy Right lateral epicondylitis Debridement February 23, 2022 Family History Family History Sibling Brain cancer Hypertension Heart disease Other Family history of arthritis Family history of cardiovascular disease Family history of kidney stones Social History Social History (Updated 10/18/22 @ 10:32 by Jasmyne Taylor MA) Years smoked: 20 Smoking status: Former smoker Tobacco type: cigarettes Second hand tobacco smoke exposure: No Smoking end date: 02/17/15 Alcohol intake: current Drinks per week: 3 Lack of Transportation: No Lack of Food: Never True Current Housing: I Have Housing Concerned About Future Housing: No Difficulty Paying Gas/Electric Bills: No Difficulty Paying for Meds: No Currently Unemployed: No Education: Bachelor's Degree Difficulty w/ Childcare or Family Care: No Living arrangements: alone Occupation/Education: retired Gender identity (if verbalized by the patient): Female Spiritual care concerns: No Comments At time of signature, agree with nursing past medical, surgical, social and family history. There is no relevant family history pertinent to the presenting complaint. Exam Const: General: cooperative, healthy appearing, comfortable, no acute distress and well nourished Nutritional Appearance: well nourished Orientation/consciousness: patient oriented x3 Limitations: no limitations HENMT: Head: normal to inspection, normocephalic and atraumatic Ears: exter
== END 2022-10-25 19:20 | disposition home or self-care (01) ==
PROVIDERS: Emergency Provider Nurse Practitioner Family; PCP Internal Medicine
DX: J06.9 Acute upper respiratory infection, unspecified (principal); E03.9 Hypothyroidism, unspecified; I10 Essential (primary) hypertension; Z87.891 Personal history of nicotine dependence
CPT/HCPCS: 99213; G0463

== ENCOUNTER 2022-12-06 09:21 | Emergency (ER) | payer MEDICARE, OTHER, SELFPAY ==
--- NOTE | 2022-12-06 09:30 | ED.URI ---
HPI - URI/Sore Throat General Chief Complaint: Upper Respiratory Infection Stated Complaint: Sore Throat//Headache Time Seen by Provider: 12/06/22 09:30 Source: patient Mode of arrival: ambulatory Limitations: no limitations History of Present Illness HPI Narrative: Lucila is a 67-year-old female patient presenting to the clinic with complaints of a sore throat and headache x 3 days. She reports no known fever or chills. Reports that her daughter and grand kids have recently had strep and she has had direct exposure. MD elicited complaint: sore throat and other (Headache) Related Data Home Medications Medication Instructions Recorded Confirmed cholecalciferol (vitamin D3) 125 125 mcg PO DAILY 10/01/20 12/06/22 mcg (5,000 unit) capsule melatonin 3 mg tablet 1.5 mg PO DAILY 10/01/20 12/06/22 thyroid 120 mg tablet 105 mg PO DAILY 10/01/20 12/06/22 estradiol 1 mg tablet 1 mg PO DAILY 10/23/20 12/06/22 testosterone 1 % (25 mg/2.5 gram) 1 packet transdermal DAILY 10/23/20 12/06/22 transdermal gel packet progesterone micronized 200 mg 200 mg PO HS 02/17/22 12/06/22 capsule Allergies Allergy/AdvReac Type Severity Reaction Status Date / Time No Known Allergies Allergy Unknown Verified 12/06/22 09:30 Review of Systems Review of Systems: Pertinent positives per HPI. Patient denies any fever, chills, rash, visual changes, dizziness, cough, shortness of breath, chest pain, palpitations, nausea, vomiting, diarrhea, constipation, abdominal pain, or any urinary issues. [facility] Past Medical History Medical History Hypertension Hypothyroid Pure hypercholesterolemia Surgical History Surgical History History of hysterectomy Right lateral epicondylitis Debridement February 23, 2022 Family History Family History Sibling Brain cancer Hypertension Heart disease Other Family history of arthritis Family history of cardiovascular disease Family history of kidney stones Social History Social History Years smoked: 20 Smoking status: Former smoker Tobacco type: cigarettes Second hand tobacco smoke exposure: No Smoking end date: 02/17/15 Alcohol intake: current Drinks per week: 3 Lack of Transportation: No Lack of Food: Never True Current Housing: I Have Housing Concerned About Future Housing: No Difficulty Paying Gas/Electric Bills: No Difficulty Paying for Meds: No Currently Unemployed: No Education: Bachelor's Degree Difficulty w/ Childcare or Family Care: No Living arrangements: alone Occupation/Education: retired Gender identity (if verbalized by the patient): Female Spiritual care concerns: No Comments At the time of my signature, I reviewed and agree with the nursing past medical, surgical, social, and family history. There is no relevant family history pertinent to the patient complaint. Exam Narrative: General: Well-developed, well nourished, in no apparent distress Head: Normocephalic, atraumatic Eyes: Pupils equally round and reactive to light bilaterally, EOM intact, sclera and conjunctive clear, no discharge, lids normal Ears: TMs intact and clear, ear canals clear, no drainage, grossly hearing normal. Nose: Nares patent, no discharge, no inflammation, no sinus tenderness. Mouth: Oral pharynx red without lesions or masses, good dentition, MMM. Neck: Supple, trachea midline, no enlargement of anterior or posterior cervical nodes, no thyroid masses or goiter palpable. Cardio: Regular rate and rhythm, s1 and s2 normal, no murmur appreciated. Resp: Clear to auscultation bilaterally, no rhonchi, rales, wheezing or rubs Course Course Emergency Course: Portions of this record may have been created with
[2022-12-06 09:32] VITALS: BP 124/66; PULSE 87; RESP 16; TEMP 37.3; O2SAT 99
== END 2022-12-06 10:14 | disposition home or self-care (01) ==
PROVIDERS: Emergency Provider Nurse Practitioner Family; PCP Internal Medicine
DX: J02.9 Acute pharyngitis, unspecified (principal); J06.9 Acute upper respiratory infection, unspecified; Z20.822 Contact with and (suspected) exposure to COVID-19; Z87.891 Personal history of nicotine dependence; I10 Essential (primary) hypertension; E03.9 Hypothyroidism, unspecified; E78.00 Pure hypercholesterolemia, unspecified
CPT/HCPCS: 87081; 87426; 87880; 99213; C9803; G0463

== ENCOUNTER 2023-06-13 14:44 | Outpatient (CLI) | payer MEDICARE, OTHER, SELFPAY ==
--- NOTE | ~2023-06-13 | DEXA_ITS ---
Bone Density Report Name: GREGORY GARZA Age: 67 Sex: Female Ethnicity: White Date of : 1955 Indication: postmenopausal; screening for osteoporosis; height loss; hysterectomy; Referring Provider: YESICA BOB Study: Bone densitometry was performed. Exam Date: June 13, 2023 Accession number: [id number] Bone Density: Region BMD T-score Z-score Classification AP Spine(L1-L4) 0.964 -0.8 1.3 Normal Femoral Neck (Left) 0.774 -0.7 1.1 Normal Total Hip (Left) 0.848 -0.8 0.7 Normal Femoral Neck (Right) 0.734 -1.0 0.8 Normal Total Hip (Right) 0.850 -0.8 0.7 Normal Total Hip Mean 0.849 -0.8 0.7 Normal World Health Organization criteria for BMD impression classify patients as: Normal (T-score at or above -1.0), Osteopenia (T-score between -1.0 and -2.5), or Osteoporosis (T-score at or below -2.5). 10-year Fracture Risk: FRAX not reported because: All T-scores for Spine Total, Hip Total, Femoral Neck at or above -1.0 Previous Exams: Region Exam Age BMD T-score BMD Change BMD Change Date g/cm2 vs Baseline vs Previous AP Spine (L1-L4) 06/13/2023 67 0.964 -0.8 0.043 (4.7%)* 0.023 (2.4%)# 11/06/2020 65 0.941 -1.0 0.020 (2.2%)# 0.050 (5.7%)# 09/27/2018 63 0.890 -1.4 -0.030 (-3.3%) -0.030 (-3.3%) 07/27/2016 61 0.920 -1.2 Total Hip(Left) 06/13/2023 67 0.848 -0.8 -0.008 (-1.0%) -0.041 (-4.6%) 11/06/2020 65 0.889 -0.4 0.032 (3.8%)# 0.051 (6.1%)# 09/27/2018 63 0.837 -0.9 -0.019 (-2.2%) -0.019 (-2.2%) 07/27/2016 61 0.856 -0.7 Total Hip(Right) 06/13/2023 67 0.850 -0.8 -0.011 (-1.3%) -0.041 (-4.6%) 11/06/2020 65 0.891 -0.4 0.030 (3.5%)# 0.028 (3.2%)# 09/27/2018 63 0.863 -0.6 0.002 (0.3%) 0.002 (0.3%) 07/27/2016 61 0.861 -0.7 *Denotes significance at 95% confidence level, LSC for AP Spine = 0.022 g/cm2, LSC for Total Hip = 0.027 g/cm2 # Denotes dissimilar scan types or analysis methods Clinical Information Provided by Patient: Smokes Has used the following medications: Vitamin D Has the following medical conditions: Hysterectomy Patient maximum height was 65 Menopause Age: 48 Does not regularly consume dairy products Drinks caffeinated beverages Onset of menses at age 12 Number of children 3 Impression: The patient has normal bone mass. The patient has risk factors, including: smoking. No significant bone loss was observed. Discussion: BONE
--- NOTE | ~2023-06-13 | MM_ITS ---
EXAMINATION: MM screening jen BI w raymundo HISTORY: Screening TECHNIQUE: Craniocaudal and mediolateral oblique 3-D tomosynthesis images were obtained and synthetic 2-D images were generated. CAD analysis was submitted and interpreted. COMPARISON: Comparison to multiple prior studies sequentially, with oldest reviewed study dated 07/09. BREAST PARENCHYMAL COMPOSITION: The breasts are heterogeneously dense, which may obscure small masses FINDINGS: There is no evidence of suspicious mass, calcification, or architectural distortion to sugg est malignancy in either breast. There has been no suspicious interval change. IMPRESSION: 1. No mammographic evidence of malignancy. 2. Recommend routine screening mammography in one year. BI-RADS Category 1: Negative Reviewed, dictated and finalized at location A. [employer]ITARY TECHNICIAN
== END 2023-06-13 14:45 | disposition home or self-care (01) ==
PROVIDERS: PCP Internal Medicine; Referring Provider Obstetrics & Gynecology Gynecology; Visit Provider Obstetrics & Gynecology
DX: Z12.31 Encounter for screening mammogram for malignant neoplasm of breast (principal); Z13.820 Encounter for screening for osteoporosis; M81.0 Age-related osteoporosis without current pathological fracture; Z78.0 Asymptomatic menopausal state
CPT/HCPCS: 77063; 77067; 77080

== ENCOUNTER 2023-09-15 14:51 | Emergency (ER) | payer MEDICARE, OTHER, SELFPAY ==
[2023-09-15 15:00] VITALS: BP 122/70; PULSE 75; RESP 16; TEMP 37; O2SAT 100
--- NOTE | 2023-09-15 15:04 | ED.URI ---
HPI - URI/Sore Throat General Chief Complaint: Upper Respiratory Infection Stated Complaint: Sinus Time Seen by Provider: 09/15/23 15:04 Source: patient Mode of arrival: ambulatory Limitations: no limitations History of Present Illness HPI Narrative: Patient is a 5-year-old female who presents with 7 days of congestion, cough, fatigue and body aches. Patient tested negative on at home COVID test. Patient has been taking DayQuil and NyQuil with mild relief. Denies any fever, chills, nausea, vomiting, diarrhea. Related Data Home Medications Medication Instructions Recorded Confirmed cholecalciferol (vitamin D3) 125 125 mcg PO DAILY 10/01/20 12/06/22 mcg (5,000 unit) capsule melatonin 3 mg tablet 1.5 mg PO DAILY 10/01/20 12/06/22 thyroid 120 mg tablet 105 mg PO DAILY 10/01/20 12/06/22 estradiol 1 mg tablet 1 mg PO DAILY 10/23/20 12/06/22 testosterone 1 % (25 mg/2.5 gram) 1 packet transdermal DAILY 10/23/20 12/06/22 transdermal gel packet progesterone micronized 200 mg 200 mg PO HS 02/17/22 12/06/22 capsule sertraline 50 mg tablet mg 09/15/23 Allergies Allergy/AdvReac Type Severity Reaction Status Date / Time No Known Allergies Allergy Unknown Verified 09/15/23 14:56 Review of Systems Review of Systems: All systems reviewed & are unremarkable except as noted in HPI and below Constitutional: Constitutional: Reports body ache(s), Denies chills, Reports fatigue, Denies fever(s), Denies headache(s), Denies malaise and Denies weakness Eyes: Eyes: Denies blurry vision, Denies itchy eyes and Denies loss of vision ENT: Denies otalgia, Denies headache(s), Reports nasal congestion, Denies sinus pain and Denies sore throat Cardiovascular: Cardiovascular: Denies chest pain, Denies irregular heart rhythm and Denies dyspnea Respiratory: Respiratory: Reports cough and Denies dyspnea Gastrointestinal: Gastrointestinal: Denies abdominal pain, Denies diarrhea, Denies nausea and Denies vomiting Musculoskeletal: Musculoskeletal: Denies back pain, Denies myalgias and Denies arthralgias Integumentary/Breasts: Skin/Breast: Denies pruritus and Denies rash Neurologic: Denies headache(s), Denies loss of vision and Denies weakness Psychiatric: Psychiatric: Reports no additional psychiatric complaints Endocrine: Endocrine: Denies fatigue Allergic/Immunologic: Allergic/Immunologic: Denies itchy eyes PMFSH Past Medical History Medical History Hypertension Hypothyroid Pure hypercholesterolemia Surgical History Surgical History History of hysterectomy Right lateral epicondylitis Debridement February 23, 2022 Family History Family History Sibling Brain cancer Hypertension Heart disease Other Family history of arthritis Family history of cardiovascular disease Family history of kidney stones Social History Social History Years smoked: 20 Smoking status: Former smoker Tobacco type: cigarettes Second hand tobacco smoke exposure: No Smoking end date: 02/17/15 Alcohol intake: current Drinks per week: 3 Lack of Transportation: No Lack of Food: Never True Current Housing: I Have Housing Concerned About Future Housing: No Difficulty Paying Gas/Electric Bills: No Difficulty Paying for Meds: No Currently Unemployed: No Education: Bachelor's Degree Difficulty w/ Childcare or Family Care: No Living arrangements: alone Occupation/Education: retired Gender identity (if verbalized by the patient): Female Spiritual care concerns: No Comments At time of signature, agree with nursing past medical, surgical, social and family history. There is no relevant family history pertinent to the presenting complaint. Exam Const: General: cooperative, healthy appearin
== END 2023-09-15 15:38 | disposition home or self-care (01) ==
PROVIDERS: Emergency Provider Nurse Practitioner Family; PCP Internal Medicine
DX: J06.9 Acute upper respiratory infection, unspecified (principal); I10 Essential (primary) hypertension; E03.9 Hypothyroidism, unspecified; Z87.891 Personal history of nicotine dependence
CPT/HCPCS: 99213; G0463

== ENCOUNTER 2023-12-23 13:05 | Outpatient (CLI) | payer MEDICARE, OTHER, SELFPAY ==
--- NOTE | ~2023-12-23 | XR_ITS ---
EXAMINATION: XR lg joint inject/asp w image DATE: 12/23/2023 14:16 INDICATION: Left hip pain TECHNIQUE: A time-out was performed to verify the patient's name, date of , and procedure to b e performed. The procedure including the risks, benefits, and alternatives was discussed with the pat ient. Risks discussed included bleeding and infection. The patient understood the risks and agreed to proceed. The skin overlying the left joint was prepped and draped in usual sterile fashion. Anesth etic was administered with 1% lidocaine subcutaneously. A 22 G needle was advanced under fluoroscopi c guidance into the joint. Injection of 1 mL of Omnipaque 240 confirmed intra-articular position of the needle. Subsequently, injectate consisting of 4 mL of a 3:1 mixture of 1% lidocaine: 80 mg/mL De po-Medrol was instilled. Washout of contrast was seen confirming intra-articular administration. The needle was removed and the entry site was cleaned and dressed. There were no immediate complications . Fluoroscopy exposure time was 0.1 minutes. The total number of images was 2. FINDINGS: Real-time fluoroscopy demonstrates the needle in the left joint. Patient's pain prior to pr ocedure:01/15. Patient's pain following the procedure: 08/17. IMPRESSION: 1. Successful left hip joint injection of local anesthetic and steroid with decrease in the patient's presenting pain. Reviewed, dictated and finalized at location A. IMPRESSION: 1. Successful left hip joint injection of local anesthetic and steroid with dec rease in the patient's presenting pain.
== END 2023-12-23 13:06 | disposition home or self-care (01) ==
PROVIDERS: PCP Internal Medicine; Visit Provider Nurse Practitioner Family
DX: M25.552 Pain in left hip (principal)
CPT/HCPCS: 20610; 77002; J1010; Q9966

== ENCOUNTER 2024-07-12 14:00 | Outpatient (CLI) | payer MEDICARE, OTHER, SELFPAY ==
--- NOTE | ~2024-07-12 | XR_ITS ---
EXAMINATION: XR lg joint inject/aspiration DATE: 07/12/2024 14:44 INDICATION: Left hip pain. TECHNIQUE: A time-out was performed to verify the patient's name, date of , and procedure to b e performed. The procedure including the risks, benefits, and alternatives was discussed with the pat ient. Risks discussed included bleeding and infection. The patient understood the risks and agreed to proceed. The skin overlying the left hip joint was prepped and draped in usual sterile fashion. An esthetic was administered with 1% lidocaine subcutaneously. A 22 G needle was advanced under fluoros copic guidance into the joint. Subsequently, injectate consisting of 4 mL 1% lidocaine and 1 mL 80 m g/mL Depo-Medrol was instilled. The needle was removed and the entry site was cleaned and dressed. There were no immediate complications. Fluoroscopy exposure time was 0.1 minutes. The total number of images was 1. FINDINGS: Real-time fluoroscopy demonstrates the needle in the left hip joint. IMPRESSION: 1. Fluoroscopy guided left hip joint injection of local anesthetic and steroid. Reviewed, dictated and finalized at location A. US MONITOR
== END 2024-07-12 14:01 | disposition home or self-care (01) ==
LOC: ANHIMG 14:03
PROVIDERS: PCP Obstetrics & Gynecology Gynecology; Visit Provider Nurse Practitioner Family
DX: M25.552 Pain in left hip (principal)
CPT/HCPCS: 20610; J1010; J2003

== ENCOUNTER 2024-08-06 09:51 | Outpatient (CLI) | payer MEDICARE, OTHER, SELFPAY ==
--- NOTE | ~2024-08-06 | MM_ITS ---
EXAMINATION: MM screening jen BI w raymundo HISTORY: Screening mammogram TECHNIQUE: Craniocaudal and mediolateral oblique 3-D tomosynthesis images were obtained and synthetic 2-D images were generated. CAD analysis was submitted and interpreted. COMPARISON: 06/13/2023, 02/25/2022, 11/06/2020, 10/08/2019 BREAST PARENCHYMAL COMPOSITION:Dense: The breasts are heterogeneously dense, which may obscure small masses. FINDINGS: No suspicious mass, calcification, or architectural distortion are identified in either angel ast to suggest malignancy. There has been no suspicious interval change. IMPRESSION: No mammographic evidence of malignancy. Recommend routine screening mammography in one year. BI-RADS Category 1: Negative Reviewed, dictated and finalized at location . HANGER
== END 2024-08-06 09:52 | disposition home or self-care (01) ==
LOC: ANHIMG 09:54
PROVIDERS: PCP Obstetrics & Gynecology Gynecology; Visit Provider Obstetrics & Gynecology
DX: Z12.31 Encounter for screening mammogram for malignant neoplasm of breast (principal)
CPT/HCPCS: 77063; 77067

== ENCOUNTER 2024-11-26 13:37 | Outpatient (CLI) | payer MEDICARE, OTHER, SELFPAY ==
--- NOTE | ~2024-11-26 | XR_ITS ---
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 The procedure including the risks, benefits, and alternatives was discussed with the pat ient. Risks discussed included bleeding and infection. The patient understood the risks and agreed to proceed. The skin overlying the left hip joint was prepped and draped in usual sterile fashion. An esthetic was administered with 1% lidocaine subcutaneously. A 22 G needle was advanced under fluoros copic guidance into the joint. Injection of small amount of room air confirmed intra-articular posit ion of the needle. Subsequently, injectate consisting of 4 mL a 3:1 mixture of 1% lidocaine: 80 mg/m L Depo-Medrol for a total dose of 80 mg Depo-Medrol was instilled. The needle was removed and the ent ry site was cleaned and dressed. There were no immediate complications. Fluoroscopy exposure time wa s 0.1 minutes. The total number of images was 1. FINDINGS: Real-time fluoroscopy demonstrates the needle and lucent gas in the left hip joint. Patient 's pain prior to procedure:6/10. Patient's pain following the procedure: 0/10. IMPRESSION: 1. Successful left hip joint injection of local anesthetic and steroid with decrease in the patient's presenting pain. Reviewed, dictated and finalized at location A. IMPRESSION: 1. Successful left hip joint injection of local anesthetic and steroid with dec rease in the patient's presenting pain.
--- OUTSIDE RECORDS SUMMARY | 2024-11-26 15:23 | XMS_ITS | Clinical Summary ---
Author Organization [facility] Address [address] [place] [address] Care Team Providers Care Warehouse Order Selector Name Role Phone Branden Rao MD Primary Care Provider [phone]- [phone] Allergies No known active allergies Medications lisinopriL (PRINIVIL,ZESTR IL) 10 mg tablet Take 1 tablet (10 mg total) by mouth daily 04/16/2023 Active progesterone (PROMETRIUM) 100 mg capsule Take 5 capsules (500 mg total) by mouth daily Active estradioL (ESTRACE) 2 mg tablet Take 2.25 mg by mouth daily Active sertraline (ZOLOFT) 50 mg tablet 04/03/2024 Active Hospital, Clinic, or Other Facility Administered Medication Ordered Dose Route Frequency Start Date End Date Status lidocaine (XYLOCAINE) 10 mg/mL (1 %) injection 4 mLIndications:Admini stration of Local Anesthesia 4 mL One-Time Injection 11/13/2024 5 Ended triamcinolone (KENALOG) 40 mg/mL injection 40 mgIndications:Primar y osteoarthritis of right knee 40 mg intra-artic One-Time Injection 11/13/2024 5 Ended Active Problems No known active problems Encounters Date Type Department Care Team Description 11/13/2024 8:45 AM CDT Office Visit [facility] Orthopaedic Surgery [address] [place] [address] 2nd Floor [address] [place] [address] Morales Jarquin MD Primary osteoarthritis of right knee (Primary Dx) 10/26/2024 Telephone [facility] Orthopaedic Surgery [address] [place] [address] Floor [address] [place] [phone] Virginia Alaniz CMA 10/25/2024 Telephone [facility] Orthopedics and Sports Medicine [address] [place] [address] Mario Taylor NP 10/24/2024 Telephone [facility] Orthopedics and Sports Medicine [address] [place] [address] Young Barrera MD from Last 3 Months Social History Tobacco Use Types Packs/Day Years Used Date Smoking Tobacco: Former Cigarettes Tobacco Cessation:Counseling Given: Not Answered Comments Unknown Sex and Gender Information Value Date Recorded Sex Assigned at Not on file Legal 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 Gender Identity Not on file Sexual Orientation Not on file Obstetrics History Last Filed Vital Signs Vital Sign Reading Time Taken Comments Blood Pressure 131/74 12/12/2023 8:58 AM CDT Pulse 67 12/12/2023 8:58 AM CDT Temperature 36.8 C (98.2 F) 2023 8:31 AM HORTICULTURALIST Respiratory Rate 18 2023 8:31 AM HORTICULTURALIST Oxygen Saturation 96% 2023 8:31 AM HORTICULTURALIST Inhaled Oxygen Concentration - - Weight 59 kg (130 lb) 04/17/2024 6:11 AM CDT Height 162.6 cm (5' 4 ) 04/17/2024 6:11 AM CDT Body Mass Index 22.31 04/17/2024 6:11 AM CDT Plan of Treatment Health Maintenance Due Date Last Done Comments Breast Cancer Screening-Mammogram 1955 Colon Cancer Screening-Colonoscopy 1955 Depression Screening 1953 Fall Risk Assessment 1955 Hepatitis C Screening 1955 Osteoporosis Screening-Bone Density Scan 1953 DTaP/Tdap/Td Vaccine (1 - Tdap) 1964 Hepatitis B Screening 1971 Pneumococcal vaccine 65+ (1 of 1 - PCV) 2003 Zoster Vaccine (1 of 2) 2003 Well Visit 65+ 2018 Covid-19 Vaccine ( season) 2024 05/15/2021, 08/17/2020, 07/27/2020 Influenza Vaccine (Season Ended) 2025 05/18/20, 04/18/2020 Procedures Procedure Name Priority Date/Time Associated Diagnosis Comments [place] ARTHROCENTESIS ASPIR&/INJ MAJOR JT/BURSA W/O US Routine 11/13/2024 8:45 AM CDT Primary osteoarthritis of right knee from Last 3 Months Results * [place] ARTHROCENTESIS ASPIR&/INJ MAJOR JT/BURSA W/O US (11/13/2024 8:45 AM CDT) Narrative Morales Jarquin MD - 11/13/2024 8:45 AM CDT Morales Jarquin MD 11/13/2024 10:16 AM Right knee joint corticosteroid injection Performed by: Morales Jarquin MD Authorized by: Morales Jarquin MD Large Joint Injection/Aspiration: Consent Given by: Patient Verbal consent obtained: Yes Supporting Documentation: Indications: Pain Procedure Details: Location: Knee Site: R knee Prep: patient was prepped using a clean technique Needle Size: 25 G Approach: Anterolateral Ultrasound guided: No Medications: 4 mL lidocaine 10 mg/mL (1 %); 40 mg triamcinolone 40 mg/mL Patient tolerance: Patient tolerated the procedure well with no immediate complications Informed consent was obtained including discussion of potential benefits and risks with risks including infection and bleeding. The patient was positioned sitting on the examination table with the knees flexed 90 . The injection site was palpated and marked. The skin was then prepped with Betadine. Subsequently, using sterile no-touch technique a 25 gauge 1.5 inch needle was then introduced via an anterolateral portal with injection of 4 milliliters of 1% lidocaine and 40 mg of 40 milligrams/mL Kenalog without resistance after aspiration was attempted. The patient tolerated the procedure well with no immediate complications. us Morales Jarquin MD IN CLINIC/BEDSIDE ORDERA BLES Final Result from Last 3 Months Insurance [employer] MEDICARE [employer] Care Teams Warehouse Order Selector Relationship Specialty Start Date End Date Branden Rao MD [address] [facility] [address] [place] [id number] PCP - General Internal Medicine 06/06/23
--- OUTSIDE RECORDS SUMMARY | 2024-11-26 15:23 | XMS_ITS | Referral Summary ---
Author Organization [facility] Address [address] [place] [address] Care Team Providers Care Biological Science Aide Name Role Phone Branden Rao MD Primary Care Provider [phone]- [phone] Encounters Date Type Department Care Team Description 11/13/2024 8:45 AM CDT Office Visit [facility] Orthopaedic Surgery [address] [place] [address] 2nd Floor [address] [place] [phone] Morales Jarquin MD Primary osteoarthritis of right knee (Primary Dx) 10/26/2024 Telephone [facility] Orthopaedic Surgery [address] [place] [address] Floor [address] [place] [address] Virginia Alaniz CMA 10/25/[address] [facility] Orthopedics and Sports Medicine [address] [place] [address] [place] [phone] Mario Taylor NP 10/24/2024 Telephone [facility] Orthopedics and Sports Medicine [address] [place] [address] [address] [place] [phone] Young Barrera MD from Last 3 Months Allergies No known active allergies Medications lisinopriL [...] Ended Active Problems No known active problems Social History Tobacco Use Types Packs/Day Years Used Date Smoking Tobacco: Former Cigarettes Tobacco Cessation:Counseling Given: Not Answered Comments Unknown Sex and Gender Information Value Date Recorded Sex Assigned at Not on file 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 Gender Identity Not on file Sexual Orientation Not on file Last Filed Vital Signs Vital Sign Reading Time Taken Comments Blood Pressure 131/74 12/12/2023 8:58 AM CDT Pulse 67 12/12/2023 8:58 AM CDT Temperature 36.8 C (98.2 F) 2023 8:31 AM STEAM CONDITIONER FILLING Respiratory Rate 18 2023 8:31 AM STEAM CONDITIONER FILLING Oxygen Saturation 96% 2023 8:31 AM STEAM CONDITIONER FILLING Inhaled Oxygen Concentration - - Weight 59 kg (130 lb) 04/17/2024 6:11 AM CDT Height 162.6 cm (5' 4 ) 04/17/2024 6:11 AM CDT Body Mass Index 22.31 04/17/2024 6:11 AM CDT Plan of Treatment Not on file Procedures Procedure Name Priority Date/Time Associated Diagnosis Comments [place] ARTHROCENTESIS ASPIR&/INJ MAJOR JT/BURSA W/O US Routine 11/13/2024 8:45 AM CDT Primary osteoarthritis of right knee from Last 3 Months Results * [place] ARTHROCENTESIS ASPIR&/INJ MAJOR JT/BURSA W/O US (11/13/2024 [...] the procedure well with no immediate complications. Morales Jarquin MD IN CLINIC/BEDSIDE ORDERA BLES Final Result from Last 3 Months Insurance MEDICARE [facility] MEDICARE [facility] Care Teams Biological Science Aide Relationship Specialty Start Date End Date Branden Rao MD [address] [facility] [id number] PCP - General Internal Medicine 06/06/23
== END 2024-11-26 13:38 | disposition home or self-care (01) ==
PROVIDERS: PCP Obstetrics & Gynecology Gynecology; Visit Provider Nurse Practitioner Family
DX: M16.12 Unilateral primary osteoarthritis, left hip (principal)
CPT/HCPCS: 20610; 77002; J1010; J2003

== ENCOUNTER 2025-07-21 12:02 | Emergency (ER) | payer MEDICARE, OTHER, SELFPAY ==
[2025-07-21 12:09] VITALS: BP 142/97; PULSE 75; RESP 20; TEMP 36.6; O2SAT 99
--- NOTE | 2025-07-21 12:10 | ED.FEMALEGU ---
HPI - Female Genitourinary General Chief complaint: Urogenital-Female Stated complaint: urinary irritation Time Seen by Provider: 07/21/25 12:20 Source: patient, RN notes reviewed and old records reviewed Mode of arrival: ambulatory Limitations: no limitations History of Present Illness HPI Narrative: 70-year-old female presents to the [facility] wanting to be checked for UTI. Reports low back pain but denies any other symptoms. Denies burning, frequency, urgency, abdominal pain, nausea or vomiting. Denies fevers. Symptoms started yesterday. States that she did take a dose of ibuprofen yesterday Related Data Home Medications ?Medication ?Instructions ?Recorded ?Confirmed ?Last Taken ?Type cholecalciferol (vitamin D3) 125 125 mcg PO DAILY 10/01/20 02/05/25 02/22/22 History mcg (5,000 unit) capsule thyroid 120 mg tablet 105 mg PO DAILY 10/01/20 02/05/25 02/23/22 05:00 History estradiol 1 mg tablet 1 mg PO DAILY 10/23/20 02/05/25 02/22/22 History testosterone 1 % (25 mg/2.5 gram) 1 packet transdermal DAILY 10/23/20 02/05/25 10/30/20 History transdermal gel packet progesterone micronized 200 mg 200 mg PO HS 02/17/22 02/05/25 02/22/22 History capsule sertraline 50 mg tablet mg 09/15/23 02/05/25 Unknown History Allergies Allergy/AdvReac Type Severity Reaction Status Date / Time No Known Allergies Allergy Unknown Verified 07/21/25 12:24 Review of Systems Review of Systems: All systems reviewed & are unremarkable except as noted in HPI and below Constitutional: Constitutional: Reports no additional constitutional complaints Respiratory: Respiratory: Reports no additional respiratory complaints, Denies chest congestion, Denies cough and Denies dyspnea Gastrointestinal: Gastrointestinal: Reports no additional gastrointestinal complaints and Denies abdominal pain Genitourinary: Genitourinary: Reports no additional female genitourinary complaints Musculoskeletal: Musculoskeletal: Reports as per HPI Integumentary/Breasts: Skin/Breast: Reports system reviewed and no additional complaints, except as docu PMFSH Past Medical History Medical History BMI 23.0-23.9, adult Dysuria Worsening headaches Myalgia History of renal calculi Dizziness and giddiness Cough Hypothyroid Hypertension Pure hypercholesterolemia Surgical History Surgical History Right lateral epicondylitis Debridement February 23, 2022 History of hysterectomy Family History Family History Sibling Brain cancer Hypertension Heart disease Father Mother Sibling No problems noted. Other Family history of arthritis Family history of cardiovascular disease Family history of kidney stones Social History Social History Years smoked: 20 Smoking status: Former smoker Tobacco type: cigarettes Second hand tobacco smoke exposure: No Smoking end date: 02/17/15 Alcohol intake: current Drinks per week: 3 Substance use: never Substance use type: does not use Lack of Transportation: No Lack of Food: Never True Current Housing: I Have Housing Concerned About Future Housing: No Difficulty Paying Gas/Electric Bills: No Difficulty Paying for Meds: No Currently Unemployed: No Education: Bachelor's Degree Difficulty w/ Childcare or Family Care: No Living arrangements: alone Occupation/Education: retired 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 There is no relevant family history pertinent to the patient complaint. Exam Const: General: cooperative, healthy appearing, comfortable, no acute distress, well developed, alert and well nourished Nutritional Appearance: well nourished Orientation/consciousness: patient oriented x3 Limitations: no limitations HENMT: Head: normal to inspection Eyes: General: appearance normal, both eyes and all related structures Alignment and Position: alignment normal Neck: Neck: normal visual inspection, full ROM, no lymphadenopathy and no meningeal signs Chest: Chest palpation & inspection: normal inspection of the chest Resp: Effort & Inspection: normal respiratory effort and able to speak in complete sentences Auscultation: clear to auscultation bilaterally, no crackles, no rales, no rhonchi and no wheezes Cardio: Rate: regular rate GI: GI Palp: No abdominal tenderness : General: Yes no CVA tenderness Skin: General skin exam: normal color and no rashes or lesions noted Neuro: General: patient oriented x3, gait normal, moves all extremities and no meningeal signs Cognition (Neuro): normal cognition Speech: normal speech Gait exam (Neuro): Normal gait present Extrem: General: normal to inspection, full ROM, capillary refill normal and normal gait Psych: Appearance: grossly normal and well kempt Mental Status: mental status grossly normal Speech and movement: Normal speech and movement present and Clear speech present Affect: normal affect Attitude: cooperative Course Course Level of Care: Express Care Visit Vital Signs Vital signs: Vital Signs Temperature 97.8 F 07/21/25 12:09 Pulse Rate 75 07/21/25 12:09 Respiratory Rate 20 07/21/25 12:09 Blood Pressure 142/97 H 07/21/25 12:09 Pulse Oximetry 99 07/21/25 12:09 Oxygen Delivery Room Air 07/21/25 12:09 Temperature 97.8 F 07/21/25 12:09 Pulse Rate 75 07/21/25 12:09 Respiratory Rate 20 07/21/25 12:09 Blood Pressure 142/97 H 07/21/25 12:09 Pulse Oximetry 99 07/21/25 12:09 Oxygen Delivery Room Air 07/21/25 12:09 reviewed MDM MDM Narrative Medical decision making narrative: patient sitting in exam room. Patient is nontoxic, vitals are stable except blood pressure mildly elevated. Patient does take blood pressure medication. Patient presents with low pain, concern for UTI. Denies any other symptoms urine dip does not show signs of a UTI, discussed with patient. Patient is appropriate outpatient treatment close Discharge instructions reviewed with patient, as well as provided in writing per nursing staff. The instructions also include specific and strict return/GO TO THE ER as well as f/u information. All questions have been answered, and the patient deny any further questions with discharge and discharge plan. Some parts of this dictation were generated by voice recognition software and may contain typographical and/or grammatical inaccuracies. Differential Diagnosis Differential Diagnosis: Differential diagnostic considerations for female urogenital? issues include urinary tract infection, bacterial vaginosis, cervicitis, ovarian cyst, vaginitis, STI exposure, ovarian torsion, ectopic , cyst of Bartholin?s gland, cystitis, dysmenorrhea.?? Lab Data Labs: Lab Results 07/21/25 Range/Units 12:11 POC Urine Color Yellow POC Urine Clarity Clear POC Urine pH 5.5 POC Ur Specif Evant 1.025 POC Urine Protein Negative (Negative) POC Ur Glucose (UA) Negative (Negative) POC Urine Ketones Negative (Negative) POC Urine Blood Negative (Negative) POC Urine Nitrite Negative (Negative) POC Urine Bilirubin Negative (Negative) POC Urine Urobilinogen 0.2 POC U Leukocyte Esteras Negative (Negative) reviewed Discharge Plan Discharge Clinical Impression: Low back ache Patient Disposition: Home Condition: Stable Instructions: Antibiotic Form, Acute Low Back Pain (ED) Additional Instructions: Increased water intake Take Tylenol alternating with Motrin as needed for pain Today your urine dip did not show signs of a UTI. Your urine will be sent to our lab for a culture. If at that time a bacteria grows you will be notified and prescribed an appropriate antibiotic Follow-up with primary care, today your blood pressure was 142/97 For new or worsening symptoms go directly to the emergency room Patient Language: Slovenian Prescriptions: No Action sertraline 50 mg tablet (DME) Aerochamber MV Spacer See Rx Instructions .Route Qty: 1 0RF Rx Instructions: As directed thyroid 120 mg tablet 105 mg PO DAILY cholecalciferol (vitamin D3) 125 mcg (5,000 unit) capsule 125 mcg PO DAILY lisinopril 10 mg tablet 10 mg PO DAILY Qty: 90 3RF estradiol 1 mg Tablet 1 mg PO DAILY testosterone 1 % (25 mg/2.5gram) Gel In Packet 1 packet TRANSDERMAL DAILY progesterone micronized 200 mg Capsule 200 mg PO HS Follow-up/Referrals: Russel Kohler DO [Primary Care Provider, Internal Medicine] - 2 Weeks Time of Disposition: 12:25
[2025-07-21 12:16] LABS: EDUAAPPEAR Clear; EDUABILI Negative (Negative); EDUABLOOD Negative (Negative); EDUACOLOR1 Yellow; EDUAGLUCOSE Negative (Negative); EDUAKETONE Negative (Negative); EDUALEUKO Negative (Negative); EDUANITRATE Negative (Negative); EDUAPH 5.5; EDUAPROTEIN Negative (Negative); EDUASPGRAVITY 1.025; EDUAUROBILI 0.2
== END 2025-07-21 12:30 | disposition home or self-care (01) ==
PROVIDERS: Emergency Provider Nurse Practitioner; PCP Internal Medicine
DX: M54.50 Low back pain, unspecified (principal); I10 Essential (primary) hypertension; E78.00 Pure hypercholesterolemia, unspecified; E03.9 Hypothyroidism, unspecified; Z87.442 Personal history of urinary calculi; Z87.891 Personal history of nicotine dependence
CPT/HCPCS: 81003; 87086; 87186; 99213; G0463